=== PATIENT | female | born 1940 | race Caucasian/White ===

== ENCOUNTER 2025-01-02 19:13 | Inpatient (IN) | payer MEDICAID, MEDICARE ==
[2025-01-02 20:20] LABS: ALT (SGPT) 8 U/L (Less than 34); AST (SGOT) 18 U/L (11-34); Albumin 3.1 g/dL (3.1-4.5); Alkaline Phosphatase 121 U/L (40-110); Anion Gap 10 mmol/L (10-20); BUN (Urea Nitrogen) 24 mg/dL (9.8-20.1); Bilirubin, Total 0.2 mg/dL (0.3-1.2); Calc. Creatinine Clearance 0 mL/min (70-130); Calcium 10.2 mg/dL (7.8-10.44); Carbon Dioxide 34 mmol/L (23-31); Chloride 101 mmol/L (98-107); Globulin 3.9 g/dL (2.4-3.5); Glucose 109 mg/dL (83-110); Potassium 4.4 mmol/L (3.5-5.1); Sodium 141 mmol/L (136-145)
[2025-01-02 20:25] LABS: #Basophils Less than 0.03 10x3/uL (0.0-0.2); #Eosinophils 0.36 10x3/uL (0.0-0.5); #Monocytes 0.39 10x3/uL (0.0-1.1); #Neutrophils 4.37 10x3/uL (1.5-8.4); %Basophils 0.3 % (0.0-2.0); %Eosinophils 5.7 % (0.0-6.0); %Lymphocytes 18.6 % (18.0-47.0); %Monocytes 6.2 % (0.0-10.0); %Neutrophils 69.0 % (40.0-75.0); Hematocrit 30.6 % (34.9-44.5); Hemoglobin 8.6 g/dL (12.0-15.5); Mean Corpuscular Hemoglobin 26.6 pg (27.0-33.0); Mean Corpuscular Volume 94.7 fL (81.6-98.3); Platelet Count 180 10x3/uL (150-450); Red Blood Cell (RBC) Count 3.23 10x6/uL (3.90-5.03); White Blood Cell (WBC) Count 6.33 10x3/uL (3.5-10.5)
[2025-01-02 20:35] LABS: Troponin I 0.118 ng/mL (< 0.028)
[2025-01-02 21:00] LABS: Platelet Adequacy Comment Appears Adequate
[2025-01-02 21:12] LABS: Glucose, Urine (Dipstick) 250 mg/dL (Negative); Leukocyte 100 (Negative); Protein, Urine (Dipstick) 30 mg/dl (Neg-Trace); Specific Gravity, Urine 1.015 (1.005-1.030)
[2025-01-02 21:21] LABS: Bacteria/HPF Rare-Few HPF (None Seen); CAUTI Indications for Culture Dysuria,urgency,freq; RBC/HPF 0-3 HPF (0-3); Urine Culture Reflex No No; WBC/HPF 0-3 HPF (0-3)
[2025-01-02] MEDS ORDERED: Acetaminophen 325 MG TAB PO PRN (23:37)
[2025-01-02] MEDS ORDERED: Calcium Carbonate 500 MG ChewTAB PO PRN (23:37)
[2025-01-02] MEDS ORDERED: Senokot S 8.6-50 MG TAB PO PRN (23:37)
[2025-01-02] MEDS ORDERED: Ondansetron PF 4 MG/2 ML Vial IVP PRN (23:37)
[2025-01-02] MEDS ORDERED: cefTRIAXone (ROCEPHIN) 1 GM VIAL ONE (23:39)
[2025-01-02 23:43] LABS: Troponin I 0.121 ng/mL (< 0.028)
[2025-01-03] MEDS ORDERED: Furosemide 40 MG (4 mL) VIAL ONE ×2 (00:58→08:24)
[2025-01-03] MEDS: Albumin 25% 25 GM (100 mL) BOT IVPB SCH (01:10)
[2025-01-03] MEDS: Furosemide 40 MG (4 mL) VIAL SLOW IVP SCH ×2 (01:11→08:51)
[2025-01-03] MEDS ORDERED: Lanolin Alcohol/MO/W.Pet/Ceres 57 GM CR TP PRN (02:07)
[2025-01-03 03:45] LABS: #Basophils Less than 0.03 10x3/uL (0.0-0.2); #Eosinophils 0.41 10x3/uL (0.0-0.5); #Monocytes 0.37 10x3/uL (0.0-1.1); #Neutrophils 4.09 10x3/uL (1.5-8.4); %Basophils 0.2 % (0.0-2.0); %Eosinophils 6.7 % (0.0-6.0); %Lymphocytes 20.2 % (18.0-47.0); %Monocytes 6.0 % (0.0-10.0); %Neutrophils 66.7 % (40.0-75.0); Hematocrit 29.0 % (34.9-44.5); Hemoglobin 8.2 g/dL (12.0-15.5); Mean Corpuscular Hemoglobin 26.6 pg (27.0-33.0); Mean Corpuscular Volume 94.2 fL (81.6-98.3); Platelet Count 165 10x3/uL (150-450); Red Blood Cell (RBC) Count 3.08 10x6/uL (3.90-5.03); White Blood Cell (WBC) Count 6.13 10x3/uL (3.5-10.5)
[2025-01-03 03:58] LABS: ALT (SGPT) 8 U/L (Less than 34); AST (SGOT) 14 U/L (11-34); Albumin 3.4 g/dL (3.1-4.5); Alkaline Phosphatase 116 U/L (40-110); Anion Gap 13 mmol/L (10-20); BUN (Urea Nitrogen) 23 mg/dL (9.8-20.1); Bilirubin, Total 0.3 mg/dL (0.3-1.2); Calc. Creatinine Clearance 0 mL/min (70-130); Calcium 10.3 mg/dL (7.8-10.44); Carbon Dioxide 35 mmol/L (23-31); Chloride 99 mmol/L (98-107); Globulin 3.7 g/dL (2.4-3.5); Glucose 97 mg/dL (83-110); Potassium 4.0 mmol/L (3.5-5.1); Sodium 143 mmol/L (136-145)
[2025-01-03 04:05] LABS: Troponin I 0.119 ng/mL (< 0.028)
[2025-01-03] MEDS ORDERED: Furosemide 40 MG TAB PO SCH (07:30)
[2025-01-03] MEDS ORDERED: Albumin 25% 25 GM (100 mL) BOT IVPB SCH (08:00)
[2025-01-03] MEDS ORDERED: Cholecalciferol 1,000 UNITS (25 MCG) TAB ONE (08:27)
[2025-01-03] MEDS ORDERED: Carvedilol 6.25 MG TAB ONE (08:27)
[2025-01-03] MEDS: Carvedilol 3.125 MG TAB PO SCH (08:48)
[2025-01-03] MEDS: Cholecalciferol 1,000 UNITS (25 MCG) TAB PO SCH (08:48)
[2025-01-03] MEDS: Ferrous Sulfate 325 MG TAB PO SCH (08:49)
[2025-01-03 12:07] VITALS: BMI 45.9
[2025-01-03] MEDS: Melatonin 3 MG TAB PO SCH (20:21)
[2025-01-04 12:32] VITALS: BP 118/57; TEMP 98.3
== END 2025-01-04 18:34 | DRG 291 ==
LOC: SUATTDRO 19:13 → CSHERS 19:13 → CSHERHOLD 23:34 → CSHTELE 01-03 11:54 → OBSVTOIN 01-03 13:29
PROVIDERS: ADMIT Internal Medicine; ATTEND Internal Medicine
PROC: 30233J1 Transfusion of Nonautologous Serum Albumin into Peripheral Vein, Percutaneous Approach (ICD-10-PCS; principal; 2025-01-03)
DX: I13.0 Hypertensive heart and chronic kidney disease with heart failure and stage 1 through stage 4 chronic kidney disease, or unspecified chronic kidney disease (principal); I50.33 Acute on chronic diastolic (congestive) heart failure; J96.11 Chronic respiratory failure with hypoxia; Z68.42 Body mass index [BMI] 45.0-49.9, adult; D63.1 Anemia in chronic kidney disease; R82.90 Unspecified abnormal findings in urine; E78.5 Hyperlipidemia, unspecified; I48.91 Unspecified atrial fibrillation; N18.9 Chronic kidney disease, unspecified; J45.909 Unspecified asthma, uncomplicated; E66.9 Obesity, unspecified; Z88.2 Allergy status to sulfonamides; Z88.0 Allergy status to penicillin; E03.9 Hypothyroidism, unspecified; Z79.890 Hormone replacement therapy; Z88.1 Allergy status to other antibiotic agents; Z91.041 Radiographic dye allergy status; Z90.710 Acquired absence of both cervix and uterus; Z87.442 Personal history of urinary calculi; Z74.01 Bed confinement status
CPT/HCPCS: 36415; 71045; 80053; 81001; 83880; 84484; 85025; 87086; 93005; 94760; 94762; 96375; 96376; 97139; G0378; J0696; J1940; P9047